=== PATIENT | female | born 1955 ===

== ENCOUNTER 2022-09-19 07:31 | Day surgery (SDC) | payer MEDICARE, BC ==
[~2022-09-19 07:31] MED LIST: Lactated Ringers 1,000 ML IV SCH; Sodium Chloride 0.9% 10 ML Syringe FLUSH PRN; Sodium Chloride 0.9% 10 ML Syringe FLUSH SCH
[2022-09-19] MEDS ORDERED: Lidocaine 1% 4 ML ONE (08:19)
[2022-09-19] MEDS ORDERED: fentaNYL 100 MCG/2 ML SDV ONE (08:19)
[2022-09-19] MEDS ORDERED: Propofol 200 MG/20 ML SDV ONE (08:19)
== END 2022-09-19 09:30 | disposition home or self-care (01) ==
LOC: JD.SDS 07:31
PROVIDERS: ATTEND Surgery
DX: Z12.11 Encounter for screening for malignant neoplasm of colon (principal); K63.89 Other specified diseases of intestine; K64.4 Residual hemorrhoidal skin tags; K64.8 Other hemorrhoids; I10 Essential (primary) hypertension; E78.5 Hyperlipidemia, unspecified; E55.9 Vitamin D deficiency, unspecified; E78.00 Pure hypercholesterolemia, unspecified; Z88.8 Allergy status to other drugs, medicaments and biological substances; Z79.82 Long term (current) use of aspirin; Z80.0 Family history of malignant neoplasm of digestive organs; Z79.899 Other long term (current) drug therapy; Z90.710 Acquired absence of both cervix and uterus
CPT/HCPCS: 00811; J2704; J3010; J3490; J7120